=== PATIENT | female | born 1990 | race Caucasian/White ===

== ENCOUNTER 2017-03-15 19:09 | Emergency (ER) | payer MEDICAID ==
[~2017-03-15] VITALS: Ht 157.5 cm; Wt 59.0 kg
[2017-03-15 19:50] VITALS: BP 112/62
== END 2017-03-15 20:38 | disposition home or self-care (01) ==
LOC: ER 19:13
DX: J02.9 Acute pharyngitis, unspecified (principal); J45.909 Unspecified asthma, uncomplicated; M41.9 Scoliosis, unspecified